=== PATIENT | male | born 1990 | race Two or more races ===

== ENCOUNTER 2024-03-03 12:44 | Emergency (ER) | payer SELFPAY ==
[~2024-03-03] VITALS: Ht 165.1 cm; Wt 77.3 kg
[2024-03-03 12:49] VITALS: TEMP 98.5
[2024-03-03 14:08] LABS: HEMOGLOBIN 15.5 g/dL (13.5-17.5); MEAN CORPUSCULAR HEMOGLOBIN 30.8 pg (26.0-34.0); MONOCYTES # (AUTO) 0.7 K/uL (0.1-1.0)
[2024-03-03 14:26] LABS: BASOPHILS % (AUTO) 1.3 % (0.0-2.0); EOSINOPHILS % (AUTO) 1.8 % (1.0-6.0); HEMATOCRIT 45.9 % (41-53); LYMPHOCYTES # (AUTO) 2.6 K/uL (1.0-4.8); LYMPHOCYTES % (AUTO) 32.8 % (22.0-44.0); MEAN CORPUSCULAR HGB CONC 33.9 G/dL (31.0-37.0); MEAN CORPUSCULAR VOLUME 91 fL (80-100); MONOCYTES % (AUTO) 9.1 % (2.0-9.0); NEUTROPHILS # (AUTO) 4.3 K/uL (1.8-7.7); PLATELET COUNT (AUTO) 342 K/uL (150-450); RED BLOOD CELL COUNT(AUTO) 5.05 MIL/uL (4.50-5.90); RED CELL DISTRIBUTION WIDTH 14.1 % (11.5-14.5); WHITE BLOOD COUNT (AUTO) 7.8 K/uL (4.5-11.0)
[2024-03-03] MEDS: PredniSONE 20 MG TABLET PO ONE (14:31)
[2024-03-03 14:36] LABS: CARBON DIOXIDE 27 mmol/L (22-29); CHLORIDE 102 mmol/L (98-107); SODIUM SERUM 138 mmol/L (136-145)
[2024-03-03 14:37] LABS: ANION GAP 9 mmol/L (8-16); CALCIUM, TOTAL 9.5 mg/dL (8.8-10.5); CREATININE 0.86 mg/dL (0.60-1.30); GLOMERULAR FILTR. RATE CALC > 60 mL/min (>60); GLUCOSE,RANDOM 97 mg/dL (70-110); UREA NITROGEN, BLOOD 13 mg/dL (7-18)
[2024-03-03] MEDS ORDERED: VALA500T PO (15:15)
[2024-03-03] MEDS ORDERED: PRED-554 PO (15:15)
[2024-03-03 15:22] VITALS: BP 124/82; PULSE 84; RESP 15; O2SAT 98
== END 2024-03-03 15:27 | disposition home or self-care (01) ==
LOC: EMS 12:44
DX: G51.0 Bell's palsy (principal)
CPT/HCPCS: 99284; 70450; 80048; 85025; 36415; J7512